=== PATIENT | female | born 1965 | race Caucasian/White ===

== ENCOUNTER 2018-11-26 20:51 | Emergency (ER) | payer SELFPAY ==
[~2018-11-26] VITALS: Wt 62.5 kg
[2018-11-26] MEDS ORDERED: DIPHTH/TET/ACEL PERTUSS (ADULT) 0.5 ML VIAL IM* ONE (22:00)
[2018-11-26] MEDS ORDERED: OXYCODONE/ACETAMINOPHEN (5/325) TAB PO ONE (22:00)
[2018-11-26] MEDS ORDERED: LIDOCAINE 1% (MDV) 20 ML INJ SC ONE (22:00)
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
[2018-11-26 23:12] VITALS: BP 139/82; PULSE 82; RESP 19
== END 2018-11-26 23:22 | disposition home or self-care (01) ==
LOC: E/R 20:51
DX: S01.81XA Laceration without foreign body of other part of head, initial encounter (principal); V49.50XA Passenger injured in collision with unspecified motor vehicles in traffic accident, initial encounter; Z23 Encounter for immunization
CPT/HCPCS: 70450; 71045; 72125; 90471; 90715